=== PATIENT | female | born 1950 | race Asian ===

== ENCOUNTER 2019-01-26 15:58 | Inpatient (IN) | payer OTHER, MEDICAID ==
[~2019-01-26] VITALS: Ht 162.6 cm; Wt 57.2 kg
--- NOTE | 2019-01-26 15:58 | NUR ---
Patient to ER bed 05 to gown for evaluation. Side rails up.
--- NOTE | 2019-01-26 15:59 | NUR ---
Patient brought in by ambulance to the ED for a medical clearance, pain severity 0/10. Patient is being placed to [facility] for increasing aggresiveness towards other patients. Denied any fevers or chills. Denied any recent trauma or falls. Patient is awake and calm, respirations even and unlabored, ambulating with a steady gait. VS WNL. Denied any respiratory distress at this time. Informed of the wait time. Instructed to notify ED staff for any changes in condition while waiting to be seen by a provider. Patient verbalized understanding.
--- NOTE | 2019-01-26 16:00 | NUR ---
Urine specimen collected and dropped off at the lab. Patient tolerated the procedure well.
[2019-01-26 16:12] VITALS: BP_SYST 164
--- NOTE | 2019-01-26 16:30 | NUR ---
ECg done at bedside as ordered by Dr. Richards. Report given to MD. Patient tolerated the procedure well.
--- NOTE | 2019-01-26 16:45 | NUR ---
MRSA specimen collected as ordered by Dr. Richards. Patient tolerated the procedure well.
--- NOTE | 2019-01-26 17:40 | NUR ---
ER Dr. Richards at bedside examining patient.
[2019-01-26 18:23] LABS: BASOPHILS # (AUTO) 0.1 K/uL (0.0-0.2); BASOPHILS % (AUTO) 1.1 % (0.0-2.0); EOSINOPHILS # (AUTO) 0.2 K/uL (0.0-0.4); EOSINOPHILS % (AUTO) 2.4 % (0.0-4.0); HEMATOCRIT 39.5 % (36-48); HEMOGLOBIN 13.3 g/dL (12.0-16.0); LYMPHOCYTES # (AUTO) 1.2 K/uL (1.0-5.5); LYMPHOCYTES % (AUTO) 16.2 % (20.5-51.5); MEAN CORPUSCULAR HEMOGLOBIN 31 pg (27-31); MEAN CORPUSCULAR HGB CONC 34 % (32-36); MEAN CORPUSCULAR VOLUME 91 fL (79.0-98.0); MONOCYTES # (AUTO) 0.6 K/uL (0.0-1.0); MONOCYTES % (AUTO) 8.9 % (1.7-9.3); NEUTROPHILS # (AUTO) 5.1 K/uL (1.8-7.7); NEUTROPHILS % (AUTO) 71.4 % (40.0-70.0); PLATELET COUNT (AUTO) 218 K/uL (130-430); RED BLOOD CELL COUNT(AUTO) 4.32 MIL/uL (4.2-6.2); WHITE BLOOD COUNT (AUTO) 7.2 K/uL (4.8-10.8)
[2019-01-26 18:28] LABS: ANION GAP 6 (5-15); CHLORIDE 105 mmol/L (98-107); GLUCOSE 85 mg/dL (70-99); POTASSIUM 4.3 mmol/L (3.5-5.1); SODIUM SERUM 139 mmol/L (136-145); UREA NITROGEN, BLOOD 15 mg/dL (8-21)
[2019-01-26 18:30] LABS: GFR AFRICAN AMERICAN 106 mL/min (>90)
[2019-01-26 18:37] LABS: ALANINE AMINOTRANSFERASE 14 U/L (12-78); ALBUMIN 3.4 g/dL (3.4-4.8); ASPARTATE AMINOTRANSFERASE 19 U/L (10-37); TOTAL BILIRUBIN 0.2 mg/dL (0.0-1.0)
[2019-01-26 18:47] LABS: BILIRUBIN,URINE NEGATIVE (NEGATIVE); BLOOD, URINE NEGATIVE (NEGATIVE); CLARITY/URINE CLEAR (CLEAR); COLOR,URINE YELLOW (YELLOW); GLUCOSE,URINE NEGATIVE (NEGATIVE); KETONES,URINE NEGATIVE (NEGATIVE); LEUKOCYTE ESTERASE ,URINE 1+ (NEGATIVE); NITRITE, URINE NEGATIVE (NEGATIVE); PROTEIN URINE NEGATIVE (NEGATIVE)
[2019-01-26 18:51] LABS: CHOLESTEROL 183 mg/dL (<200); HDL CHOLESTEROL 72 mg/dL (>55); TRIGLYCERIDES 62 mg/dL (30-150)
[2019-01-26 18:52] LABS: LDL CHOLESTEROL 93 mg/dL (<100)
[2019-01-26 18:55] LABS: BACTERIA,URINE FEW /HPF (None Seen); RBC,URINE 0-3 /HPF (0-3)
--- NOTE | 2019-01-26 19:15 | NUR ---
Report given and care transferred to TOÑA Copeland.
--- NOTE | 2019-01-26 19:15 | NUR ---
Pt resting quietly, even and non-labored respirations. NAD noted.
--- NOTE | 2019-01-26 19:30 | NUR ---
Pt to no longer be transfered to [facility]. Awaiting orders for admit to Dr. Posada.
[2019-01-26 19:56] LABS: ACETAMINOPHEN < 1 ug/mL (1-30); ALCOHOL, BLOOD < 3 mg/dL (<10)
[2019-01-26] MEDS ORDERED: DOCU250C14 PO (20:18)
[2019-01-26] MEDS ORDERED: DIVA-74 PO (20:18)
[2019-01-26] MEDS ORDERED: DEXT30DR6 EACH EYE (20:18)
[2019-01-26] MEDS ORDERED: ARIP10TA9 PO (20:18)
[2019-01-26] MEDS ORDERED: LIP10 PO (20:18)
[2019-01-26] MEDS ORDERED: FAMO40TA71 PO (20:18)
--- NOTE | 2019-01-26 20:18 | NUR ---
Medication reconciliation completed with information provided by [facility]. Any prior medication reconciliation on file was reviewed and corrected.
--- NOTE | 2019-01-26 21:00 | NUR ---
Pt awake, responsive, VSS, NAD. Calm and cooperative demeanor.
--- NOTE | 2019-01-26 21:33 | NUR ---
Patient will be admitted to care of Dr. Moore. Admitted to Tele unit. Will go to room 113A. Belongings list completed. Complete and up to date summary report printed. SBAR report to be given at bedside with opportunity for questions.
--- NOTE | 2019-01-26 21:59 | NUR ---
ADMISSION: The patient, WILLIS MILTON, 68 y/o, F admitted by ARAVIND HUNT MD, with diagnosis of ACS; primary nurse and neurosurgery physician at bedside; was given written information regarding hospital policies, unit procedures and contact persons.
--- NOTE | 2019-01-26 22:30 | NUR ---
OPENING NOTES Patient is resting in bed, received report from ER, RN. Patient is not complaining of pain at this time. Patient has IV on right forearm, patent and benign. Educated patient pension manager light system, patient stated understanding and demonstrated back. Call light within reach, bed locked, armed, and at lowest position. No other needs at this time, will continue to monitor.
--- NOTE | 2019-01-26 22:45 | NUR ---
Consultation Paged Reason for Consultation: R/O ACS Was consult called: Y Person who was notified: Melissa Consulting Physician: Yordy Butler Vice President Regulatory Ordering Physician: Dr. Posada.
--- NOTE | 2019-01-27 00:15 | NUR ---
ROUNDS Patient is resting in bed, awake, breathing evenly and nonlabored. Patient requested for water to be refilled and was hungry. Replaced water and provided patient with some snacks. Patient wanted to go to the restroom, assisted patient to the bathroom. Patient went back to bed, bed is locked, armed, and at lowest position. No other needs at this time.
[2019-01-27 00:37] VITALS: BP_SYST 152
[2019-01-27 01:18] LABS: BARBITURATE, URINE NEGATIVE (NEG <=200); BENZODIAZEPINE, URINE NEGATIVE (NEG <=150); CANNABINOID, URINE NEGATIVE (NEG <=50); COCAINE, URINE NEGATIVE (NEG <=150); METHAMPHETAMINES SCREEN,URINE NEGATIVE (NEG <=500); OPIATE, URINE NEGATIVE (NEG <=100); PHENCYCLIDINE SCREEN,URINE NEGATIVE (NEG <=25); UR TRICYCLIC ANTIDEPRESSANTS NEGATIVE (NEG <=300); URINE AMPHETAMINE NEGATIVE (NEG <=500); URINE METHADONE NEGATIVE (NEG <=200); URINE OXYCODONE SCREEN NEGATIVE (NEG <=100); URINE PROPOXYPHENE SCREEN NEGATIVE (NEG <=300)
--- NOTE | 2019-01-27 03:10 | NUR ---
ROUNDS Patient is resting in bed, eyes closed, breathing evenly and nonlabored. No other needs at this time. Fall/safety precautions.
--- NOTE | 2019-01-27 05:16 | NUR ---
ROUNDS Patient is resting in bed, eyes closed, breathing evenly and nonlabored. No s/s of distress at this time. No other needs at this time. Fall/safety precautions.
--- NOTE | 2019-01-27 06:49 | NUR ---
CLOSING NOTE Patient awake, ambulated to bathroom, denies any pain or discomfort at this time, calm and cooperative, needs attended through out the shift, fall and safety measures in place, call light within reach, will continue to monitor until report given to am nurse.
--- NOTE | 2019-01-27 07:15 | NUR ---
OPENING NOTE: Assumed care of patient, SBAR report and plan of care received from water analyst RN
[2019-01-27 08:00] VITALS: BP_SYST 146
--- NOTE | 2019-01-27 09:00 | NUR ---
RN ROUNDS: Patient resting comfortably in bed eating breakfast. No signs of aggression. Patient is cooperative at this time.
--- NOTE | 2019-01-27 11:00 | NUR ---
RN ROUNDS: Patient remains cooperative and is resting in bed. Patient is AOx1-2, difficult to assess due to language barrier and unwillingness to talk. No signs of distress noted. Breathing is even and unlabored.
--- NOTE | 2019-01-27 11:03 | NUR ---
DC Planning: Per Dr. Posada: plan to dc pt once cleared by electronic installer/Yordy Anthony then transfer [facility]. The pt came to ED for medical clearance for admission at [facility] but the pt developed cardiac arrhythmia and was admitted to tele unit. Per dr. Posada, there is no need for psych eval or get 5150 on the pt. -- Zahraa MILLER made aware for transferring the pt to [facility].
[2019-01-27 12:16] VITALS: BP_SYST 125
--- NOTE | 2019-01-27 13:00 | NUR ---
RN ROUNDS: Patient sitting up eating lunch. Patient is able to feed herself. Patient remains cooperative with no signs of aggression noted. No signs of distress or discomfort.
--- NOTE | 2019-01-27 15:00 | NUR ---
RN ROUNDS: Patient resting in bed comfortably. Patient remains cooperative, AOx1. Breathing is even and unlabored, patient is showing no signs of distress or discomfort.
[2019-01-27 16:25] VITALS: BP_SYST 126
--- NOTE | 2019-01-27 17:00 | NUR ---
Spoke with Dr Posada regarding patient home medication list, continued all home medications.
[2019-01-27] MEDS ORDERED: ARIPiprazole 5 MG TAB PO ONE (18:15)
--- NOTE | 2019-01-27 19:28 | NUR ---
ENDORSEMENT: SBAR report given and plan of care endorsed to night shift supervisor RN
--- NOTE | 2019-01-27 19:50 | NUR ---
OPENING NOTES Received bedside report from TOÑA Larry. Patient is resting in bed, eyes closed, breathing evenly and nonlabored. Patient has a right forearm IV 20g, patent and benign. No s/s of distress at this time. No other needs at this time. Fall/safety precautions. Will continue to monitor.
[2019-01-27 20:43] VITALS: BP_SYST 125
[2019-01-27] MEDS: ATORVASTATIN 10 MG TABLET PO SCH (20:47)
[2019-01-27] MEDS: DIVALPROEX SODIUM 500 MG TABLET( DEPAKOTE) PO SCH (20:47)
[2019-01-27] MEDS: PEG 400/HYPROMELLOSE/GLYCERIN 15 ML DROPS OP SCH (20:48)
--- NOTE | 2019-01-27 22:06 | NUR ---
ROUNDS/MEDICATIONS Patient is resting in bed, eyes closed, breathing evenly and nonlabored. Gave the patient medications, educated patient on the medications, patient said "ok." Patient tolerated it well. No other needs at this time. Fall/safety precautions.
[2019-01-28] VITALS: BP_SYST 127
--- NOTE | 2019-01-28 00:10 | NUR ---
ROUNDS Patient is resting in bed, eyes closed, breathing evenly and nonlabored. No other needs at this time. Fall/safety precautions.
--- NOTE | 2019-01-28 02:16 | NUR ---
ROUNDS Patient resting in bed, eyes closed, breathing easy and nonlabored. No other needs at this time. Fall/safety precautions.
--- NOTE | 2019-01-28 04:25 | NUR ---
ROUNDS Patient resting in bed, eyes closed, breathing easy and nonlabored. No s/s of distress at this time. No other needs at this time. Fall/safety precautions.
--- NOTE | 2019-01-28 06:48 | NUR ---
CLOSING NOTES Patient is resting in bed, eyes closed, breathing evenly and nonlabored. Patient has been sleeping most of the night, cooperative with taking medications and taking vital signs. No s/s of distress at this time. No other needs at this time. Fall/safety precautions.
--- NOTE | 2019-01-28 08:50 | NUR ---
Behavior Patient is calm and cooperative explained all medication opened in front of her to avoid paranoia, took all the meds, rarely talked like selective , safety/fall precaution initiated.
[2019-01-28 08:54] VITALS: BP_SYST 140
[2019-01-28] MEDS: DIVALPROEX SODIUM 500 MG TABLET( DEPAKOTE) PO SCH ×2 (08:58→20:43)
[2019-01-28] MEDS: FAMOTIDINE 20 MG TABLET PO SCH (08:58)
[2019-01-28] MEDS: ARIPiprazole 5 MG TAB PO SCH (08:58)
[2019-01-28] MEDS: DOCUSATE SODIUM 250 MG CAPSULE PO SCH (08:59)
[2019-01-28] MEDS: PEG 400/HYPROMELLOSE/GLYCERIN 15 ML DROPS OP SCH ×2 (09:23→20:44)
--- NOTE | 2019-01-28 10:30 | NUR ---
Mobility Ambulate with steady gait to bathroom,needs attended, proper handwashing demonstrated and verbalized understanding.
[2019-01-28 11:18] VITALS: BP_SYST 110
--- NOTE | 2019-01-28 14:00 | NUR ---
Daughter Torrie at the bedside ,informed plan of care possible discharge back to [facility] , patient still with episode of paranoia according to patient but cooperative and calm.
[2019-01-28 15:39] VITALS: BP_SYST 121
--- NOTE | 2019-01-28 18:19 | NUR ---
Patient calm /cooperative needs attended, safety/fall precaution initiated.
--- NOTE | 2019-01-28 19:10 | NUR ---
OPENING NOTES Bedside report received from dayshift nurse. Patient received lying in bed, awake, non verbal at this time, flat affect. Breathing is even and unlabored. HOB raised. Call light with patient. Bed alarm on. Bed is locked and at lowest position. Will continue to monitor.
[2019-01-28 20:00] VITALS: BP_SYST 136
[2019-01-28] MEDS: ATORVASTATIN 10 MG TABLET PO SCH (20:44)
--- NOTE | 2019-01-28 21:00 | NUR ---
ASSISTED TO BATHROOM Patient assisted to the bathroom and back to bed. Gait is steady, tolerated well. No signs of discomfort, no SOB. Call light with patient. Bed locked and at lowest position. Will continue to monitor.
--- NOTE | 2019-01-28 22:20 | NUR ---
CONSULTATION PAGED/CALLED Reason for Consultation: PSYCHOSIS Person Who was Notified: MELINA Consulting Physician: / ONCMARYLU Finisher Screwdown Specialty: PSYCH Ordering Physician:
--- NOTE | 2019-01-28 23:00 | NUR ---
ROUNDS Patient in bed sleeping comfortably. No s/s of acute distress noted. Breathing even and unlabored. Call light with patient. Will continue to monitor.
[2019-01-29] VITALS: BP_SYST 128
--- NOTE | 2019-01-29 01:00 | NUR ---
ROUNDS Patient sleeping at this time. No signs of discomfort noted. Chest rise and fall even bilaterally. All needs met at this time. Call light within reach. Bed is locked and at lowest position. Will continue to monitor.
--- NOTE | 2019-01-29 03:00 | NUR ---
ROUNDS Patient in bed sleeping at this time. No s/s of acute distress noted. Breathing is even and unlabored. Call light within reach. Bed is locked and at lowest position. Will continue to monitor.
--- NOTE | 2019-01-29 05:00 | NUR ---
VOID Patient assisted to bathroom and back to bed by RN. Gait steady. Patient tolerated well. All needs met. Call light with patient. Bed alarm on. Will continue to monitor.
--- NOTE | 2019-01-29 06:46 | NUR ---
CLOSING NOTES Patient in bed sleeping comfortably. No s/s of acute distress noted. Breathing even and unlabored. HOB raised slightly. IV site is patent, no signs of infiltration or infection noted. All needs met throughout the shift. Fall and safety precautions maintained throughout the shift. Will continue to monitor until patient care is endorsed to oncoming dayshift nurse.
[2019-01-29 08:42] VITALS: BP_SYST 152
[2019-01-29] MEDS: PEG 400/HYPROMELLOSE/GLYCERIN 15 ML DROPS OP SCH ×2 (08:45→20:50)
[2019-01-29] MEDS: DOCUSATE SODIUM 250 MG CAPSULE PO SCH (08:45)
[2019-01-29] MEDS: FAMOTIDINE 20 MG TABLET PO SCH (08:45)
[2019-01-29] MEDS: ARIPiprazole 5 MG TAB PO SCH (08:45)
[2019-01-29] MEDS: DIVALPROEX SODIUM 500 MG TABLET( DEPAKOTE) PO SCH ×2 (08:45→20:50)
--- NOTE | 2019-01-29 08:45 | NUR ---
Patient is awake /alert answer simple question flat affect, but cooperative , able to ambulate with steady gait, explained all medication indication/side effect , open the tablet one by one in front of the patient ,agreed to take the pills , needs attended.
--- NOTE | 2019-01-29 11:25 | NUR ---
PATIENT RESTING: Patient resting quietly, cooperative , answer simple question ,No acute distress noted. Vital signs within normal range.
[2019-01-29 12:59] VITALS: BP_SYST 136
--- NOTE | 2019-01-29 14:05 | NUR ---
Patient is able to reposition self in bed and is encouraged to request assistance when needed.
--- NOTE | 2019-01-29 16:45 | NUR ---
MD rounds Seen and examined by DR. Posada waiting for psychiatrist input.
[2019-01-29 17:08] VITALS: BP_SYST 140
--- NOTE | 2019-01-29 19:15 | NUR ---
OPENING NOTES Bedside report received from dayshift nurse. Patient received in bed, sleeping. No s/s of acute distress noted. Breathing is even and unlabored. HOB raised. Call light with patient. Bed alarm on. Bed is locked and at lowest position. Will continue to monitor.
[2019-01-29 20:00] VITALS: BP_SYST 142
[2019-01-29] MEDS: ATORVASTATIN 10 MG TABLET PO SCH (20:50)
--- NOTE | 2019-01-29 21:00 | NUR ---
ASSISTED TO BATHROOM Patient assisted to bathroom and back to bed by RN, gait steady. Patient tolerated well. All needs met. Call light with patient. Bed alarm on. Will continue to monitor.
--- NOTE | 2019-01-29 23:00 | NUR ---
ROUNDS Patient in bed asleep. No s/s of acute distress noted. Breathing even and unlabored. Call light with patient. Bed alarm on. Will continue to monitor.
[2019-01-30] VITALS: BP_SYST 148
--- NOTE | 2019-01-30 01:00 | NUR ---
ROUNDS Patients in bed sleeping at this time. No signs of discomfort noted. Chest rise and fall even bilaterally. Call light with patient. Bed alarm on. Will continue to monitor.
--- NOTE | 2019-01-30 03:00 | NUR ---
ROUNDS Patient in bed sleeping. No s/s of acute distress noted. Breathing is even and unlabored. Call light with patient. Bed alarm on. Will continue to monitor.
--- NOTE | 2019-01-30 05:00 | NUR ---
ROUNDS Patient in bed asleep. No signs of discomfort noted. Chest rise and fall even bilaterally. Call light with patient. Bed alarm on. Will continue to monitor.
--- NOTE | 2019-01-30 06:43 | NUR ---
CLOSING NOTES Patient in bed sleeping. No s/s of acute distress noted. Breathing even and unlabored. ALl needs met. Fall and safety precautions maintained. Will continue to monitor until patient care is endorsed to oncoming dayshift nurse.
[2019-01-30 08:00] VITALS: BP_SYST 159
[2019-01-30] MEDS: FAMOTIDINE 20 MG TABLET PO SCH (09:11)
[2019-01-30] MEDS: DIVALPROEX SODIUM 500 MG TABLET( DEPAKOTE) PO SCH ×2 (09:11→20:45)
[2019-01-30] MEDS: DOCUSATE SODIUM 250 MG CAPSULE PO SCH (09:11)
[2019-01-30] MEDS: ARIPiprazole 5 MG TAB PO SCH (09:12)
[2019-01-30] MEDS: PEG 400/HYPROMELLOSE/GLYCERIN 15 ML DROPS OP SCH ×2 (09:18→20:45)
--- NOTE | 2019-01-30 18:03 | NUR ---
CONSULT FOLLOW UP ON CONSULT FOR DR RUVALCABA, PER EXCHANGE DR SHABAZZ IS REGISTERED DENTAL ASSISTANT RDA AND THEY WILL PAGE HIM.
--- NOTE | 2019-01-30 19:15 | NUR ---
OPENING NOTES Bedside report received from dayshift nurse. Patient received lying in bed, sleeping. No s/s of acute distress noted. Breathing is even and unlabored. call light with patient. Bed alarm on. Will continue to monitor.
[2019-01-30 20:00] VITALS: BP_SYST 142
[2019-01-30] MEDS: ATORVASTATIN 10 MG TABLET PO SCH (20:45)
--- NOTE | 2019-01-30 21:00 | NUR ---
ROUNDS Patient in bed sleeping comfortably. No signs of discomfort noted. Chest rise and fall even bilaterally. Call light with patient. Bed alarm on. Will continue to monitor.
--- NOTE | 2019-01-30 23:00 | NUR ---
ROUNDS Patient in bed sleeping at this time. No s/s of acute distress noted. Breathing even and unlabored. Call light with patient. Bed alarm on. Will continue to monitor.
[2019-01-31] VITALS: BP_SYST 145
--- NOTE | 2019-01-31 03:00 | NUR ---
ROUNDS Patient in bed sleeping. No s/s of acute distress noted. Breathing even and unlabored. Call light with patient. Bed alarm on. Will continue to monitor.
--- NOTE | 2019-01-31 05:00 | NUR ---
ROUNDS Patient in bed asleep at this time. No signs of discomfort noted. Chest rise and fall even bilaterally. Call light with patient. Bed alarm on. Will continue to monitor.
--- NOTE | 2019-01-31 06:42 | NUR ---
CLOSING NOTES Patient in bed sleeping comfortably. No s/s of acute distress noted. Breathing is even and unlabored. Call light with patient. Bed alarm on. Will continue to monitor until patient care is endorsed to oncoming dayshift nurse. All needs met.
--- NOTE | 2019-01-31 07:08 | NUR ---
rn opening note report was endorsed by night nurse. patient is awake and alert laying in bed no signs of any distress, breathing is equal and non labored. no complaints at this time. educated registration scheduling specialist light for assistance. call light is with patient. patient is close to nurses station. no other needs at this time. will continue to monitor.
[2019-01-31 08:05] VITALS: BP_SYST 163
--- NOTE | 2019-01-31 08:05 | NUR ---
paging dr. pederson for elevated bp 163/117. patient is awake and alert sitting up in bed no signs of any dsitress,breathing is equal and non labored. patient is eating breakfast in bed. all safety precautions in place. call light is with her. patient is close to nurses station.
--- NOTE | 2019-01-31 08:06 | NUR ---
PAGEAvila PAGED ARAVIND BURTON AT [phone] SPOKE WITH BRYAN.
--- NOTE | 2019-01-31 08:51 | NUR ---
spoke with dr. pederson received orders for clonidine 0.1 mg q4prn systolic greater than 160 diastolic greater then 100.
[2019-01-31] MEDS ORDERED: cloNIDine HCL 0.1 MG TABLET PO PRN (09:15)
[2019-01-31] MEDS: FAMOTIDINE 20 MG TABLET PO SCH (09:32)
[2019-01-31] MEDS: ARIPiprazole 5 MG TAB PO SCH (09:32)
[2019-01-31] MEDS: PEG 400/HYPROMELLOSE/GLYCERIN 15 ML DROPS OP SCH ×2 (09:32→21:47)
[2019-01-31] MEDS: DIVALPROEX SODIUM 500 MG TABLET( DEPAKOTE) PO SCH ×2 (09:33→21:47)
[2019-01-31] MEDS: DOCUSATE SODIUM 250 MG CAPSULE PO SCH (09:33)
--- NOTE | 2019-01-31 09:37 | NUR ---
medication patients scheduled medication given as ordered. patient also medicated for elevated blood pressure. patient has all safety precautions in place. educated centrifugal station operator light for assistance. patient is not talking appears to be understanding by facial expressions. able take medication independently. patient able to put in eye drops in independently as well. call light is with her. close to nurses station will continue to monitor.
--- NOTE | 2019-01-31 11:20 | NUR ---
rn rounding patient is awake and alert assisted to bathroom and back to bed. all linen changed. patient shows no signs of any distress, breathing is equal and non labored. patient has call light with her educated to use for assistance. no other needs at this time. will continue to monitor.
[2019-01-31 11:59] VITALS: BP_SYST 126
--- NOTE | 2019-01-31 13:16 | NUR ---
rn rounding patient is laying in bed no signs of any distress,breathing is equal and non labored. patient educated substation wireman light , call light is with patient. patient is close to nurses station. patient has no complaints at this time. will continue to monitor.
--- NOTE | 2019-01-31 13:53 | NUR ---
Nutrition Assessment (short note d/t lack of time) Admit Dx: A- ROSALIE reviewed pt's current EMR including diet Hx, physician notes, nursing notes, pertinent labs/meds/procedures, care trends and care activity. Pt seen in bed, covered ion blankets at time of RD visit. Per EMR, PO intake is good. HbA1c 5.7 (high), no H/O DM per MD notes. Current diet remains appropriate. Current Diet Order: Cardiac diet x 4 days Ht: 5'4 Wt: 126#/ 57 kg BMI: 21.6 kg/m2 (Underweight for Geriatric age) %IBW: 105 IBW: 120#/ 55 kg Current PO intake: Good (83% average of 3 meals) ESTIMATED NUTRITIONAL REQUIREMENTS CALORIES/DAY: 1794-9131 kcal/day (25-30 kcal/kg CBW for Geriatric maintenance) PROTEIN/DAY: 57-74 gm/day (1-1.3 gm/kg CBW for Geriatric maintenance) FLUID/DAY: 1.4 l/day (25ml/kg CBW for Geriatric maintenance) D: no nutritional problem I: Recommend: continuing Cardiac diet per MD orders. M: Monitor appetite and PO intake w/ goal of pt meeting at least 75% of estimated nutritional needs, labs trending WNL, normal GI function, skin integrity/wt maintenance. E: RD to F/U within 3-5 days ROSALIE REAL
--- NOTE | 2019-01-31 13:58 | NUR ---
Dietitian recommendation Recommend: continuing Cardiac diet per MD orders. ADDIE, RD
--- NOTE | 2019-01-31 15:46 | NUR ---
RN ROUNDING PATIENT IS AWAKE AND ALERT SITTING UP IN BED NO SIGNS OF ANY DISTRESS, BREATHING IS EQUAL AND NON LABORED. PATIENT HAS CALL LIGHT WITH HER, EDUCATED TO USE FOR ASSISTANCE. PATIENT IS NON VERBAL WILL NOT COMMUNICATE VERBALLY BUT KNODS LIKE SHE IS UNDERSTANDING. PATIENT PROVIDED WITH FRESH WATER. PATIENT HAS NO OTHER NEEDS AT THIS TIME. WILL CONTINUE TO MONITOR.
[2019-01-31 16:39] VITALS: BP_SYST 124
--- NOTE | 2019-01-31 16:53 | NUR ---
consultation called again for Dr. Gorman
--- NOTE | 2019-01-31 17:22 | NUR ---
rn rounding patient is awake and alert sitting up in bed. no signs of any distress,breathing is equal and non labored. patient has all safety precautions in place. patient is close to nurses station. patient has call light with her educated to use call light with patient.patient has no other needs at this time. will continue to monitor.
--- NOTE | 2019-01-31 18:52 | NUR ---
rn closing note patient is awake and alert laying in bed no signs of any distress, breathing is equal and non labored. patient has all safety precautions in place. patient has no complaints at this time. patient is close to nurses station. patient has call light with her educated to use for assistance. patient has no other needs at this time
--- NOTE | 2019-01-31 19:30 | NUR ---
Opening notes Received report. Patient resting in bed. No signs of distress noted. Breathing even and unlabored. IV patent and intact, no signs of infiltration noted. Patient nods when asked questions. No needs at this time. Call light with the patient. Safety precautions in place.
[2019-01-31 20:00] VITALS: BP_SYST 118
--- NOTE | 2019-01-31 21:30 | NUR ---
Medications given. Educated the action and side effects of medications. Patient nodded. Assisted patient to bathroom to void. Patient back in bed. No other needs. Call light with the patient. Safety precautions in place.
[2019-01-31] MEDS: ATORVASTATIN 10 MG TABLET PO SCH (21:47)
--- NOTE | 2019-01-31 23:30 | NUR ---
Sleeping No signs of distress noted. Breathing even and unlabored. No needs at this time. Call light with the patient. Safety precautions in place.
[2019-02-01] VITALS: BP_SYST 115
--- NOTE | 2019-02-01 00:58 | NUR ---
CONSULTATION PAGED/CALLED Reason for Consultation: PSYCHOSIS Person Who was Notified: MARIA ELENA Consulting Physician: DR. WOLFF Ordering Physician: DR. HUNT FAXED FACESHEET TO DR. WOLFF'S OFFICE f) [phone]
--- NOTE | 2019-02-01 02:30 | NUR ---
Assisted to bathroom No signs of distress noted. Breathing even and unlabored. Patient back in bed. No other needs. Call light with the patient. Safety precautions in place.
--- NOTE | 2019-02-01 04:47 | NUR ---
Sleeping Patient is sleeping. No signs of distress noted. Breathing even and unlabored. No needs. Call light with the patient. Safety precautions in place.
--- NOTE | 2019-02-01 06:50 | NUR ---
Closing notes Patient is resting in bed. No signs of distress noted. Breathing even and unlabored. IV patent and intact, no signs of infiltration noted. all needs met throughout the shift. Call light with the patient. Safety precautions in place. Will endorse care to day shift RN.
--- NOTE | 2019-02-01 07:30 | NUR ---
OPENING NOTES: RECEIVED PATIENT FROM GRAIN TRIMMER NURSE. PATIENT IS AWAKE AND ALERT x2 LAYING DOWN IN BED. PATIENT DENIES ANY PAIN AT THE MOMENT. IV SITE IS PATENT WITH NO SIGNS OF INFILTRATION. PATIENT IS TOLERATING OXYGEN AT ROOM AIR WITH NO SIGNS OF DISTRESS OR SHORTNESS OF BREATH NOTED. PATIENT IN STABLE CONDITION. SAFETY, FALL AND ASPIRATION PRECAUTIONS ARE IN PLACE. BED LOCKED IN LOWEST POSITION WITH CALL LIGHT IN REACH. WILL CONTINUE TO MONITOR PATIENT FOR ANY CHANGES.
[2019-02-01 08:20] VITALS: BP_SYST 119
[2019-02-01] MEDS: PEG 400/HYPROMELLOSE/GLYCERIN 15 ML DROPS OP SCH ×2 (08:46→20:48)
[2019-02-01] MEDS: ARIPiprazole 5 MG TAB PO SCH (08:46)
[2019-02-01] MEDS: DOCUSATE SODIUM 250 MG CAPSULE PO SCH (08:46)
[2019-02-01] MEDS: DIVALPROEX SODIUM 500 MG TABLET( DEPAKOTE) PO SCH ×2 (08:46→20:47)
[2019-02-01] MEDS: FAMOTIDINE 20 MG TABLET PO SCH (08:46)
--- NOTE | 2019-02-01 10:10 | NUR ---
RN ROUNDS: PATIENT IS ASLEEP IN BED. NO SIGNS OF DISTRESS OR SHORTNESS OF BREATH NOTED. PATIENT TOLERATING OXYGEN AT ROOM AIR. PATIENT IN STABLE CONDITION. WILL CONTINUE TO MONITOR PATIENT FOR ANY CHANGES.
--- NOTE | 2019-02-01 11:48 | NUR ---
MD ROUNDS: DR. HUNT MAKING HIS ROUNDS. AWARE OF PATIENT'S CONDITION. NO NEW ORDERS GIVEN.
--- NOTE | 2019-02-01 12:05 | NUR ---
RN ROUNDS: PATIENT IS AWAKE AND ALERT x2. PATIENT IS CURRENTLY IN THE RESTROOM. NO SIGNS OF DISTRESS OR SHORTNESS OF BREATH NOTED. PATIENT IN STABLE CONDITION. WILL CONTINUE TO MONITOR PATIENT FOR ANY CHANGES.
[2019-02-01 12:15] VITALS: BP_SYST 122
--- NOTE | 2019-02-01 14:15 | NUR ---
RN ROUNDS: PATIENT IS ASLEEP IN BED. NO SIGNS OF DISTRESS OR SHORTNESS OF BREATH NOTED. PATIENT IN STABLE CONDITION. WILL CONTINUE TO MONITOR PATIENT FOR ANY CHANGES.
[2019-02-01 16:10] VITALS: BP_SYST 135
--- NOTE | 2019-02-01 16:28 | NUR ---
RN ROUNDS: PATIENT IS AWAKE AND ALERT x2 LAYING DOWN IN BED. PATIENT DENIES ANY PAIN AT THE MOMENT. NO SIGNS OF DISTRESS OR SHORTNESS OF BREATH NOTED. PATIENT IN STABLE CONDITION. WILL CONTINUE TO MONITOR PATIENT FOR ANY CHANGES.
--- NOTE | 2019-02-01 18:36 | NUR ---
CLOSING NOTES: PATIENT IS AWAKE AND ALERT x2 LAYING DOWN IN BED. PATIENT DENIES ANY PAIN AT THE MOMENT. IV SITE IS PATENT WITH NO SIGNS OF INFILTRATION. PATIENT IS TOLERATING OXYGEN AT ROOM AIR WITH NO SIGNS OF DISTRESS OR SHORTNESS OF BREATH NOTED. PATIENT IN STABLE CONDITION. SAFETY, FALL AND ASPIRATION PRECAUTIONS REMAINED IN PLACE THROUGHOUT THE SHIFT. BED LOCKED IN LOWEST POSITION WITH CALL LIGHT IN REACH. WILL ENDORSE PATIENT CARE TO ONCOMING INSURANCE APPLICATION INVESTIGATOR NURSE.
--- NOTE | 2019-02-01 19:30 | NUR ---
Opening notes Received report. Patient is resting in bed. No signs of distress noted. Breathing even and unlabored. IV patent and intact, no signs of infiltration noted. No needs at this time. Call light with the patient. Safety precautions in place.
[2019-02-01 20:00] VITALS: BP_SYST 139
[2019-02-01] MEDS: ATORVASTATIN 10 MG TABLET PO SCH (20:47)
--- NOTE | 2019-02-01 20:50 | NUR ---
Medications given. Educated the action and side effects of medications. Patient nodded. Patient tolerated well. Patient ambulated to bathroom. Patient back in bed. No other needs. Call light with the patient. Safety precautions in place.
--- NOTE | 2019-02-01 23:00 | NUR ---
Resting Patient assisted to bathroom, no signs of distress noted. Breathing even and unlabored. Patient back in bed. No other needs. Call light with the patient. Safety precautions in place.
[2019-02-02 00:22] VITALS: BP_SYST 123
--- NOTE | 2019-02-02 02:04 | NUR ---
Sleeping Patient in and out of sleep. Patient assisted to bathroom when needed. Patient currently sleeping. No signs of distress noted. Breathing even and unlabored. Call light with the patient. Safety precautions in place.
--- NOTE | 2019-02-02 04:00 | NUR ---
Assisted to bathroom no signs of distress noted. Breathing even and unlabored. Patient back in bed, no other needs. Call light with the patient. Safety precautions in place.
--- NOTE | 2019-02-02 07:00 | NUR ---
Closing notes Patient sleeping in bed. No signs of distress noted. Breathing even and unlabored. IV patent and intact, no signs of infiltration noted. all needs met throughout the shift. Call light with the patient. Safety precautions in place. Will endorse care to day shift RN.
--- NOTE | 2019-02-02 07:27 | NUR ---
OPENING NOTE Patient resting in the bed. No acute distress. Denied of pain. Skin warm and dry to touch. SL intact to RFA, no redness, no swelling, patent. Discussed the safety issue, use call light when needs help, and plan of care, verbally understanding. Safety measure maintained. Bed locked in low position, side rails up, bed alarm on. Call light within reached. Will continue to monitor.
[2019-02-02 07:50] VITALS: BP_SYST 136
--- NOTE | 2019-02-02 09:55 | NUR ---
SEEN AND EXAMINED BY ARAVIND LEYVA.
[2019-02-02] MEDS: PEG 400/HYPROMELLOSE/GLYCERIN 15 ML DROPS OP SCH ×2 (09:58→21:08)
[2019-02-02] MEDS: ARIPiprazole 5 MG TAB PO SCH (09:58)
[2019-02-02] MEDS: DOCUSATE SODIUM 250 MG CAPSULE PO SCH (09:58)
[2019-02-02] MEDS: DIVALPROEX SODIUM 500 MG TABLET( DEPAKOTE) PO SCH ×2 (09:58→21:07)
[2019-02-02] MEDS: FAMOTIDINE 20 MG TABLET PO SCH (09:58)
--- NOTE | 2019-02-02 11:10 | NUR ---
BATHROOM Patient ambulated to bathroom self in steady gait. Safety measure maintained. Continue to monitor.
--- NOTE | 2019-02-02 11:24 | NUR ---
CONSULTATION PAGED REASON FOR CONSULTATION:PSYCHOSIS WAS CONSULT CALLED?Y PERSON WHO WAS NOTIFIED:IHSAN CONSULTING PHYSICIAN:,SAID SOFTWARE ENGINEER KERNEL SPECIALTY:PSYCHE SOFTWARE ENGINEER KERNEL PHONE NUMBER:[phone] ORDERING PHYSICIAN:
[2019-02-02 12:00] VITALS: BP_SYST 123
--- NOTE | 2019-02-02 13:10 | NUR ---
ROUND Patient resting in the bed. No acute distress. Safety measure maintained. Call light within reached. Continue to monitor.
--- NOTE | 2019-02-02 14:05 | NUR ---
DAUGHTER VISITED Patient's daughter visited and talked to patient at bedside. Per daughter if the patient discharge tomorrow, no need to call her because she is going to [place] after this visit.
[2019-02-02 16:02] VITALS: BP_SYST 128
--- NOTE | 2019-02-02 16:45 | NUR ---
ROUND Patient resting in the bed. No acute distress. Safety measure maintained. Bed locked in low position, side rails up. Call light within reached. Continue to monitor.
--- NOTE | 2019-02-02 18:50 | NUR ---
CLOSING NOTE Patient resting in the bed. No acute distress. Skin warm and dry to touch. SL intact to RFA, no redness, no swelling, patent. All needs met. Safety measure maintained. Bed locked in low position, side rails up, bed alarm on. Call light within reached. Will endorse to night nurse.
--- NOTE | 2019-02-02 19:35 | NUR ---
ROUNDS PATIENT RESTING COMFORTABLY IN BED, VITALS STABLE, NO PAIN AND DISCOMFORT AT THIS TIME. ASSESSMENT DONE AND DOCUEMNTED. SEE FLOWSHEET. NEEDS ATTENDED TO. SAFETY MEASURES IN PLACED. CALL LIGHT PLACED WITHIN REACH.
[2019-02-02] MEDS: ATORVASTATIN 10 MG TABLET PO SCH (21:07)
--- NOTE | 2019-02-02 21:13 | NUR ---
MEDICATION DUE MEDICATIONS GIVEN SCHEDULED, TOLERATED WELL. WILL CONTINUE TO MONITOR.
--- NOTE | 2019-02-03 00:13 | NUR ---
PATIENT RESTING: Patient resting quietly. No acute distress noted. Vital signs within normal range.
[2019-02-03 01:58] VITALS: BP_SYST 127
--- NOTE | 2019-02-03 04:12 | NUR ---
ROUNDS PATIENT ASLEEP, RESPIRATIONS EVEN AND UNLABORED, WILL CONTINUE TO MONITOR.
--- NOTE | 2019-02-03 06:55 | NUR ---
CLOSING NOTES PATIENT REMAINED STABLE, NO PAIN AND DISCOMFORT NOTED. ALL NEEDS ATTENDED TO. SAFETY MEASURES MAINTAINED. BED IN LOW AND LOCKED POSITION. CALL LIGHT PLACED WITHIN REACH.
--- NOTE | 2019-02-03 07:34 | NUR ---
OPENING NOTE Patient resting in the bed with eyes closed. No acute distress. Skin warm and dry to touch. SL intact to RFA, no redness, no swelling. Safety measure maintained. Bed locked in low position, side rails up, bed alarm on. Call light within reached. Will continue to monitor.
[2019-02-03 07:57] VITALS: BP_SYST 144
[2019-02-03] MEDS: DOCUSATE SODIUM 250 MG CAPSULE PO SCH (08:37)
[2019-02-03] MEDS: PEG 400/HYPROMELLOSE/GLYCERIN 15 ML DROPS OP SCH ×2 (08:37→22:02)
[2019-02-03] MEDS: ARIPiprazole 5 MG TAB PO SCH (08:37)
[2019-02-03] MEDS: FAMOTIDINE 20 MG TABLET PO SCH (08:37)
[2019-02-03] MEDS: DIVALPROEX SODIUM 500 MG TABLET( DEPAKOTE) PO SCH ×2 (08:37→22:02)
--- NOTE | 2019-02-03 09:54 | NUR ---
ROUND Patient resting in the bed. No acute distress. Safety measure maintained. Bed locked in low position, side rails up, bed alarm on. Call light within reached. Continue to monitor.
--- NOTE | 2019-02-03 11:12 | NUR ---
SEEN AND EXAMINED BY MIKA SAENZ.
--- NOTE | 2019-02-03 11:21 | NUR ---
FOLLOWED UP WITH PSYCH CONSULT WITH DR WOLFF/DR PÉREZ. SPOKE TO DR WOLFF ON HIS CELL. HE SAID THAT HE OR DR PÉREZ WILL EVALUATE PT TODAY BEFORE 1800. CALLED ALSO THE OFFICE OF DR WOLFF. SPOKE TO JANNETH TO REMIND BOTH MDS' TO EVALUATE PT TODAY.
--- NOTE | 2019-02-03 12:20 | NUR ---
ROUND Patient resting in the bed. No acute distress. Safety measure maintained. Call light within reached. Bed locked in low position, side rails up, bed alarm on. Continue to monitor.
[2019-02-03 12:43] VITALS: BP_SYST 166
--- NOTE | 2019-02-03 14:21 | NUR ---
ROUND Patient resting in the bed comfortable. No acute distress. Skin warm and dry to touch. Safety measure maintained. Call light within reached. Bed locked in low position, side rails up, bed alarm on. Continue to monitor.
--- NOTE | 2019-02-03 15:45 | NUR ---
SEEN BY ARAVIND LEYVA WITH DISCHARGE ORDER RECEIVED.
[2019-02-03 16:44] VITALS: BP_SYST 118
--- NOTE | 2019-02-03 17:34 | NUR ---
Discharge Planning: DCP faxed pt referral to [facility] (f [phone] p [phone]) DCP spoke to Zain will review referral with nurse and give room number. DCP to follow up
--- NOTE | 2019-02-03 18:58 | NUR ---
CLOSING NOTE Patient resting in the bed. No acute distress. Skin warm and dry to touch. SL intact to RFA, no redness, no swelling, patent. All needs met. Safety measure maintained. Bed locked in low position, side rails up, bed alarm on. Call light within reached. Waited the call from [facility] for room. Will endorse to night nurse.
[2019-02-03 20:00] VITALS: BP_SYST 118
--- NOTE | 2019-02-03 22:00 | NUR ---
pt recieved awake alert and oriented x2 .pt have no c/o chest . pain . pt was going to be discharge to day ,but there was no bed .pt will be discharged tomorrow .vital sign stable . pt on cardiac diet , will continue to monitor pt .
[2019-02-03] MEDS: ATORVASTATIN 10 MG TABLET PO SCH (22:03)
--- NOTE | 2019-02-04 | NUR ---
pt vital sign stable . no c/o paain ,no sob . will continue to monitor pt ,.
[2019-02-04 00:10] VITALS: BP_SYST 110
--- NOTE | 2019-02-04 06:05 | NUR ---
pt was pain free . no c/o pain , pt will be discharged today.
[2019-02-04 08:00] VITALS: BP_SYST 152
--- NOTE | 2019-02-04 08:00 | NUR ---
initial notes rec patient awake alert with ivl on the l arm intact. no infiltration noted. denies pain at this time. resp easy and unlabored. no sob noted. bed to the lowest position and side rails up and locked. call light within reached and knows when to call for assistance.
[2019-02-04] MEDS: DIVALPROEX SODIUM 500 MG TABLET( DEPAKOTE) PO SCH (09:47)
[2019-02-04] MEDS: FAMOTIDINE 20 MG TABLET PO SCH (09:47)
[2019-02-04] MEDS: DOCUSATE SODIUM 250 MG CAPSULE PO SCH (09:47)
[2019-02-04] MEDS: PEG 400/HYPROMELLOSE/GLYCERIN 15 ML DROPS OP SCH (09:48)
[2019-02-04] MEDS: ARIPiprazole 5 MG TAB PO SCH (09:48)
--- NOTE | 2019-02-04 10:38 | NUR ---
Discharge Planing: [facility] (f [phone] p [phone]) per Jerry Rm 27C, DCP made CM and nurse aware DC order needed. DCP Addendum: 02/04/19 at 1121 by Taylor DELEON DCP arranged transportation with [facility] ([phone]) 2:00pm P/U to [facility] (f [phone] p [phone]) Rm 27C. Nurse made aware patient packet taken to nurse station.
--- NOTE | 2019-02-04 12:00 | NUR ---
rounds eating lunch at this time. no sob noted. call light within reached. ambulates to the br.
[2019-02-04 12:50] VITALS: BP_SYST 122
--- NOTE | 2019-02-04 14:10 | NUR ---
Discharge to [facility] via [facility],all belongings sent , awake/alert ambulatory ,calm /cooperative.
== END 2019-02-04 14:18 | DRG 392 ==
LOC: SED 15:58 → STU 20:22 → SMU 01-30 18:58
PROVIDERS: ADMIT Internal Medicine; ATTEND Internal Medicine
DX: K31.84 Gastroparesis (principal); F20.0 Paranoid schizophrenia; F41.9 Anxiety disorder, unspecified; F31.9 Bipolar disorder, unspecified; E78.5 Hyperlipidemia, unspecified; M62.50 Muscle wasting and atrophy, not elsewhere classified, unspecified site; M81.0 Age-related osteoporosis without current pathological fracture; I11.9 Hypertensive heart disease without heart failure; Z79.899 Other long term (current) drug therapy; F29 Unspecified psychosis not due to a substance or known physiological condition
CPT/HCPCS: 36415; 80053; 80061; 80307; 81000-TC; 83036; 84484; 85025; 87081; 87086; 93005; 93306; 99285; G0378; G0480; G0481; G0482